=== PATIENT | male | born 1950 | race Caucasian/White ===

== ENCOUNTER 2019-01-10 13:48 | Emergency (ER) | payer MEDICARE, OTHER ==
[2019-01-10 13:56] VITALS: BP 166/81
[2019-01-10] MEDS ORDERED: KETOROLAC TROMETHAMINE 60 MG/2 ML SDV IM ONE (14:09)
[2019-01-10] MEDS ORDERED: LIDOCAINE 5% (700 MG) TRANSDERMAL ADH..PATCH TP ONE (14:09)
--- NOTE | 2019-01-10 14:14 | ER Document Report ---
HPI - HPI Time Seen by Provider: 01/10/19 13:58 Pain Level: 5 Notes: Patient is a 68-year-old male with a history of chronic back pain, arthritis, congestive heart failure, hypertension, COPD, hepatitis C who presents complaining of right buttock pain over the past several day without any injury. Patient states that he has had pain in this area before and has needed an injection. Patient [place] from [place] of town and is here for the summer. He is currently on Valium as well as hydrocodone for chronic pain issues. He is eating and drinking without difficulty. He is urinating normally and having normal bowel movements. Patient states that the pain does not radiate and is worse when he sits down or is walking. No history of spinal abscess or IV drug abuse. Denies any headache, fever, URI, sore throat, chest pain, palpitations, syncope, cough, shortness of breath, wheeze, dyspnea, abdominal pain, nausea/vomiting/diarrhea, urinary retention, dysuria, hematuria, loss of control of bowel or bladder, numbness/tingling, saddle anesthesia, muscle paralysis/weak ness, or rash. - ROS Systems Reviewed and Negative: Yes All other systems reviewed and negative Past Medical History - Social History Smoking Status: Unknown if Ever Smoked Family History: Reviewed & Not Pertinent Vertical Provider Document - CONSTITUTIONAL Agree With Documented VS: Yes Notes: PHYSICAL EXAMINATION: GENERAL: Well-appearing, well-nourished and in no acute distress. LUNGS: Breath sounds clear to auscultation bilaterally and equal. No wheezes rales or rhonchi. HEART: Regular rate and rhythm without murmurs, rubs, gallops. ABDOMEN: Soft, nontender, nondistended abdomen. No guarding, no rebound. Normal bowel sounds present. No CVA tenderness bilaterally. No pulsatile mass Musculoskeletal: LE's b/l: FROM to passive/active. Strength 5+/5. No deficits noted. No bony tenderness of extremities. Back: FROM to passive/active. Strength 5+/5. No vertebral point tenderness, stepoffs, or deformities. No other bony tenderness, erythema, swelling, or ecchymosis. SLR negative b/l. Mild spasming. + rt SI jt tenderness, reproduces pain described by patient. No foot drop Extremities: No cyanosis, clubbing, or edema b/l. Peripheral pulses 2+. Capillary refill less than 2 seconds. NEUROLOGICAL: Normal speech, ambulates with aide of SPC. Normal sensory, motor exams. Reflexes 2+ b/l. PSYCH: Normal mood, normal affect. SKIN: Warm, Dry, normal turgor, no rashes or lesions noted. - INFECTION CONTROL TRAVEL OUTSIDE OF THE [place] IN LAST 30 DAYS: No Course - Re-evaluation Re-evalutation: 01/10/19 14:11 Patient is an afebrile, well-hydrated, 68-year-old male who presents to the ED with acute on chronic low back pain, suspect sacroiliitis. Vitals are acceptable. PE is otherwise unremarkable for any focal neurological deficits. No vertebral point tenderness. Patient was given Toradol and Lidoderm patch. He has no significant tachycardia, tachypnea, or hypoxia. He is nontoxic- appearing and is tolerating p.o. without difficulties. There are no signs of infection. No other red flag symptoms noted. No other labs or imaging warranted at this time based on H&P. Low suspicion for any meningitis, fracture, expanding/ruptured AAA, cauda equina syndrome, epidural mass lesion/abscess, herniated disc causing severe spinal stenosis, or other systemic infection at this time. Patient is aware that his condition can change from initial presentation and that he needs monitor symptoms closely for any acute changes. I will send him home with a prescription for lidoderm patches and voltaren. Conservative measures otherwise for symptoms. Recheck with your PCM in 3-5 days. Consider consult with orthopedic/physical therapy. Return to the ED with any worsening/concerning symptoms otherwise as reviewed discharge. Patient is in agreement. - Vital Signs Vital signs: Temp Pulse Resp BP Pulse Ox 97.9 F 76 16 166/81 H 94 01/10/19 13:54 01/10/19 13:54 01/10/19 13:54 01/10/19 13:54 01/10/19 13:54 Discharge - Discharge Clinical Impression: Sacroiliitis Right low back pain Qualifiers: Chronicity: acute Sciatica presence: without sciatica Qualified Code(s): M54.5 - Low back pain Condition: Stable Disposition: HOME, SELF-CARE Additional Instructions: Rest, Ice Tylenol/ibuprofen as needed Light stretches daily Strength exercises as able Moist heat and massage may help F/u with your PCP in 3-5 days for a recheck Consider consult(s) with Orthopedics/physical therapy for ongoing/worsening symptoms Return to the ED with any worsening symptoms and/or development of fever, headache, chest pain, palpitations, syncope, shortness of breath, trouble breathing, abdominal pain, n/v/d, blood in stool/urine, loss of control of bowel/bladder, urinary retention, muscle weakness/paralysis, saddle anesthesia, numbness/tingling, or other worsening symptoms that are concerning to you. Prescriptions: Diclofenac Sodium [Voltaren] 4 gm TP QID PRN #100 gel..gm. PRN Reason: Lidocaine [Lidoderm 5% (700 mg) Transdermal Patch] 1 patch TP DAILY #10 adh..patch Forms: Elevated Blood Pressure Referrals: [facility] [Provider Group] - Follow up as needed [facility] [Provider Group] - Follow up as needed
== END 2019-01-10 14:47 | disposition home or self-care (01) ==
LOC: ER 13:48
DX: M46.1 Sacroiliitis, not elsewhere classified (principal); M54.5 Low back pain; G89.29 Other chronic pain; Z79.891 Long term (current) use of opiate analgesic; Z79.899 Other long term (current) drug therapy
CPT/HCPCS: 99283; 96372; J1885

== ENCOUNTER → 2019-01-20 | Outpatient (CLI) | payer MEDICARE ==
--- NOTE | 2019-01-21 09:27 | RADIOLOGY REPORT (SQ) ---
EXAM DESCRIPTION: MRI LUMBAR SPINE COMBO COMPLETED DATE/TIME: 01/20/2019 5:05 pm REASON FOR STUDY: (M51.36)OTHER INTERVERTEBRAL DISC DEGENERATION, LUMBAR REGION M79.89 OTHER SPECIF IED SOFT TISSUE DISORDERS M51.36 OTHER INTERVERTEBRAL DISC DEGENERATION, LUMBAR REGION COMPARISON: None. TECHNIQUE: Sagittal and Axial imaging includes T1, T1 post gadolinium, T2, STIR and gradient echo se quences. Coronal T2/HASTE imaging. CONTRAST TYPE AND DOSE: 15 mL Dotarem. RENAL FUNCTION: Not indicated. ACR Type II contrast agent associated with few, if any, unconfounded cases of NSF LIMITATIONS: None. FINDINGS: VISUALIZED UPPER ABDOMEN: Limited evaluation. No acute or suspicious findings suggested. SEGMENTATION: No transitional anatomy. The lowest well-developed disc space is labeled L5-S1. ALIGNMENT: Anatomic. VERTEBRAE: Intact. No fractures. BONE MARROW: Minimal fatty reactive vertebral body endplate changes anteriorly at L2-3. DISC SIGNAL: Diffuse decreased T2 weighted intervertebral disc signal. Minimal contrast enhancement along the rightward paracentral disc margin at L3-4. POSTERIOR ELEMENTS: Generally intact. No pars defect evident. HARDWARE: None in the spine. CORD AND CONUS: Normal in size and signal intensity. Conus at the L1-2 level. SOFT TISSUES: No aortic aneurysm seen. No bulky retroperitoneal adenopathy or mass. No paraspinal mas s or fluid. T11-12: Minimal posterior disc bulging, mild bilateral facet hypertrophy. No central stenosis or fo raminal stenosis. T12-L1: No central or foraminal stenosis. L1-L2: No central or foraminal stenosis. Mild to moderate bilateral facet arthropathy. L2-L3: No central or foraminal stenosis. Yler-[id number] bilateral facet arthropathy. L3-L4: Broad diffuse posterior disc bulging is present with a right paracentral annular tear. This exhibits minimal contrast enhancement along the disc margin on sagittal image 5 and axial postcontras t T1 weighted image 18. There is flattening of the thecal sac near the takeoff of the right L4 nerve root in the lateral recess on axial T2 image 18. Borderline central canal stenosis results from this broad diffuse posterior disc bulge and moderate b ilateral facet hypertrophy. Elsewhere at L3-4 there is mild right and left inferior foraminal narrowing without exiting L3 nerve root impingement.. L4-L5: Minimal posterior disc bulging, mild bilateral facet and ligament hypertrophy. Borderline henrietta tral canal narrowing. Mild bilateral foraminal narrowing without exit L4 nerve root impingement. L5-S1: Minimal posterior disc bulging. Mild bilateral facet and ligament hypertrophy. No central st enosis. Mild bilateral foraminal narrowing without exit L5 nerve root impingement SACRUM: Visualized upper sacrum intact. ENHANCEMENT: No abnormal conus or lumbar nerve root enhancement. Minimal contrast enhancement along the right paracentral disc margin at L3-4 OTHER: No other significant findings. IMPRESSION: Degenerative disc changes as above. TECHNICAL DOCUMENTATION: JOB ID: [id number] [employer]- All Rights Reserved Reading location - IP/workstation name: [email or web address]
== END ==
LOC: RAD 15:58
PROVIDERS: ATTEND Physician Assistant
DX: M51.36 Other intervertebral disc degeneration, lumbar region (principal); M48.061 Spinal stenosis, lumbar region without neurogenic claudication; M79.89 Other specified soft tissue disorders
CPT/HCPCS: 82565; 72158; A9576